=== PATIENT | male | born 1940 | race Caucasian/White ===

== ENCOUNTER 2020-11-27 12:24 | Day surgery (SDC) | payer MEDICARE, MEDICAID ==
[~2020-11-27] VITALS: Ht 172.7 cm; Wt 81.7 kg
[2020-11-27] VITALS (9 sets, daily range): BP systolic 82–110; BP diastolic 48–73
[2020-11-27] MEDS ORDERED: normal saline 1,000 ML IV SCH (13:00)
[2020-11-27] MEDS ORDERED: diphenhydrAMINE 25mg capsule PO PRN (13:00)
[2020-11-27] MEDS ORDERED: LORazepam 0.5 MG tablet PO PRN (13:00)
[2020-11-27] MEDS ORDERED: SACU1TAB PO (13:21)
[2020-11-27] MEDS ORDERED: METO-395 PO (13:21)
[2020-11-27] MEDS ORDERED: APIX5TAB3 PO (13:21)
[2020-11-27] MEDS ORDERED: ATOR-2 PO (13:21)
[2020-11-27] MEDS ORDERED: ASPI-611 PO (13:28)
[2020-11-27] MEDS ORDERED: ACET1TAB25 PO (13:28)
[2020-11-27] MEDS ORDERED: ISOS5TAB3 PO (13:28)
[2020-11-27] MEDS ORDERED: FURO40TA4 PO (13:28)
[2020-11-27] MEDS ORDERED: IBUP-2417 PO (13:28)
[2020-11-27] MEDS ORDERED: METHYLPREDNISOLONE (13:28)
[2020-11-27] MEDS ORDERED: LOP25T PO (13:28)
[2020-11-27] MEDS ORDERED: ALLO300T35 PO (13:28)
[2020-11-27] MEDS ORDERED: FLO0.4C PO (13:28)
[2020-11-27] MEDS ORDERED: LIDOcaine 1% (10mg/ml)w/preservative injection 20ml MDV ONE (14:01)
[2020-11-27] MEDS ORDERED: nitroGLYCERIN-Tridil 50MG/D5W 250 ML IV ONE (14:01)
[2020-11-27] MEDS ORDERED: midazolam 1 mg/ML 2ml injection ONE (14:01)
[2020-11-27] MEDS ORDERED: verapamil 2.5 mg/ml inj IV ONE (14:01)
[2020-11-27] MEDS ORDERED: fentaNYL/PF 50MCG/1 ML 2ML syringe ONE (14:01)
[2020-11-27] MEDS ORDERED: iohexol 350MG/ML 100ml bottle IV ONE (14:01)
[2020-11-27] MEDS ORDERED: heparin 1,000unit/ml 10ml vial 10 ML ONE (14:01)
[2020-11-27] MEDS ORDERED: OXAZEpam 15mg capsule PO PRN (15:00)
[2020-11-27] MEDS ORDERED: ondansetron/PF 4mg/2ml inj IV PRN (15:00)
[2020-11-27] MEDS ORDERED: HYDROcodone/acetaminophen 10/325mg tab PO PRN (15:00)
[2020-11-27] MEDS ORDERED: proCHLORperazine 10 MG/2 ml inj IV PRN (15:00)
[2020-11-27] MEDS ORDERED: HYDROcodone/acetaminophen 5mg/325mg tablet PO PRN (15:00)
== END 2020-11-27 18:10 | disposition home or self-care (01) ==
LOC: SSTAY O 12:24
PROVIDERS: ATTEND Internal Medicine Interventional Cardiology
DX: R07.9 Chest pain, unspecified (principal); I20.0 Unstable angina; I42.9 Cardiomyopathy, unspecified; I50.9 Heart failure, unspecified; I48.91 Unspecified atrial fibrillation; E78.5 Hyperlipidemia, unspecified; I44.7 Left bundle-branch block, unspecified; Z79.899 Other long term (current) drug therapy; Z79.01 Long term (current) use of anticoagulants; Z79.82 Long term (current) use of aspirin; Z87.442 Personal history of urinary calculi; Z88.0 Allergy status to penicillin
CPT/HCPCS: 93005; 93458; 99152; C1769; C1894; J1644; J2001; J2250; J3010; J7030; Q0163; Q9967; 99153; A4620; J3490